=== PATIENT | female | born 1995 | race Caucasian/White ===

== ENCOUNTER 2017-11-10 19:40 | Emergency (ER) | END 2017-11-10 21:39 | disposition left against medical advice (07) ==

== ENCOUNTER → 2017-12-24 | Emergency (ER) | END | disposition left against medical advice (07) ==

== ENCOUNTER 2018-04-19 00:18 | Emergency (ER) | END 2018-04-19 02:40 | disposition home or self-care (01) ==

== ENCOUNTER 2019-01-14 13:44 | Emergency (ER) | payer OTHER ==
[~2019-01-14] VITALS: Ht 165.1 cm; Wt 59.1 kg
[~2019-01-14 13:44] MED LIST: ACET500C5 PO; CIPR500T4 PO; IBUP-1542 PO; POLY17PO6 PO
[2019-01-14 13:57] VITALS: BP 124/72; PULSE 100; RESP 18; Ht 165.1 cm; Wt 59.1 kg
[2019-01-14] MEDS ORDERED: IBUPROFEN 600 MG TAB PO ONE (15:00)
== END 2019-01-14 16:46 | disposition home or self-care (01) ==
LOC: FTE 13:44
DX: S70.12XA Contusion of left thigh, initial encounter (principal); S80.212A Abrasion, left knee, initial encounter; V13.4XXA Pedal cycle driver injured in collision with car, pick-up truck or van in traffic accident, initial encounter
CPT/HCPCS: 29505; 73550; 73562; 81025; Z7502; Z7610